=== PATIENT | male | born 1945 | race Caucasian/White ===

== ENCOUNTER 2019-04-06 15:12 | Emergency (ER) | payer MEDICARE ==
[2019-04-06 15:39] LABS: APPEARANCE,URINE Cloudy (CLEAR); BILIRUBIN,URINE Negative (NEGATIVE); COLOR,URINE Dark Yellow (YELLOW); GLUCOSE, URINE (UA) Negative (NEGATIVE); KETONES,URINE Negative (NEGATIVE); LEUKOCYTE ESTERASE ,URINE Large (NEGATIVE); NITRATE,URINE Positive (NEGATIVE); OCCULT BLOOD,URINE Large (NEGATIVE); PH,URINE 5.5 (5.0-8.0); PROTEIN,URINE POS 1+ mg/dL (NEGATIVE)
[2019-04-06 15:52] LABS: BACTERIA,URINE Moderate /HPF (None Seen)
[2019-04-06 15:54] LABS: SQUAMOUS EPITHELIAL CELL,UR Rare /HPF (0-2)
[2019-04-06] MEDS ORDERED: CEFTRIAXONE SODIUM 1 GM ONE (15:54)
== END 2019-04-06 17:34 | disposition home or self-care (01) ==
LOC: EDBD 15:12 → EDH 15:12
DX: N39.0 Urinary tract infection, site not specified (principal); R33.9 Retention of urine, unspecified
CPT/HCPCS: 51702; 81001; 87077; 87088; 87186; 96374; 99284; J0696